=== PATIENT | female | born 1960 | race Caucasian/White ===

== ENCOUNTER 2016-06-17 21:47 | Emergency (ER) | payer MEDICARE ==
[2016-06-17 21:58] VITALS: TEMP 98.5; BMI 43.3
[2016-06-17 23:41] LABS: AUTOMATED BASOPHIL 0.9 % (0-2); AUTOMATED LYMPH 34.3 % (17-44); AUTOMATED MONOCYTE 11.7 % (3-10); AUTOMATED NEUTROPHIL 43.1 % (45-76); MPV 9.4 fL (7.4-10.4)
[2016-06-17 23:47] LABS: PARTIAL THROMB. TIME 27.8 SEC (22-35); PT-INR 1.3
[2016-06-17 23:48] LABS: BLOOD UREA NITROGEN 12 MG/DL (7-17); CALC CORRECTED 9.6 MG/DL (8.4-10.2); CALCIUM 8.5 MG/DL (8.4-10.2); CALCULATED OSMOLALITY 271 MOs/Kg (270-290); CHLORIDE 111 mEq/L (98-107); GLUCOSE 97 MG/DL (70-99); SODIUM LEVEL 141 mEq/L (137-146); TOTAL PROTEIN 6.2 G/DL (6.3-8.2)
--- NOTE | 2016-06-17 23:54 | DIRPT ---
CLINICAL DATA: 56-year-old female with weakness EXAM: PORTABLE CHEST 1 VIEW COMPARISON: Radiograph dated 05/13/2016 FINDINGS: The heart size and mediastinal contours are within normal limits. Both lungs are clear. The visualized skeletal structures are unremarkable. IMPRESSION: No active disease. Electronically Signed By: Ricky Gama M.D. On: 06/17/2016 23:51
--- NOTE | 2016-06-18 00:19 | EDPRACDOC ---
- General Information Chief Complaint: Generalized Weakness Stated Complaint: SLEEPING A LOT BLOOD SUGAR 113 TODAY SOME CONFUSIO Time Seen by Provider: 06/17/16 23:20 Information Source: Patient Home Medications: Home Medications Escitalopram Oxalate [Lexapro] 20 mg PO DAILY 06/17/13 Folic Acid 1 mg PO DAILY 06/17/13 Multivitamin [Multiple Vitamins] 1 tab PO DAILY 06/17/13 Zinc Sulfate 220 mg PO BID 06/15/14 Melatonin 3 mg PO QHS 07/04/15 Ferrous Sulfate [Iron] 325 mg PO BID #100 tablet 08/13/15 Furosemide [Lasix] 20 mg PO BID #60 tablet 08/13/15 Lactulose [Cephulac] 20 gm PO BID #1 bot 08/13/15 Nadolol [Corgard] 20 mg PO DAILY #30 tablet 08/13/15 Rifaximin [Xifaxan] 550 mg PO BID #60 tablet 08/13/15 Gabapentin 300 mg PO TID 11/22/15 Diphenhydramine [Benadryl] 25 mg PO Q6H PRN 05/13/16 Ergocalciferol (Vitamin D2) [Vitamin D2 (ergocalciferol)] 50,000 units PO MOWE 05/13/16 Milk Thistle 175 mg PO BID 05/13/16 Spironolactone [Aldactone] 25 mg PO QAM 05/13/16 Lactulose [Cephulac] 20 gm PO TID #30 days 06/18/16 Allergies/Adverse Reactions: Allergies Allergy/AdvReac Type Severity Reaction Status Date / Time levofloxacin [From Levaquin] Allergy Unknown Unknown/See Verified 05/13/16 20:17 Comments codeine [Codeine] Allergy Nausea only Verified 05/13/16 20:17 duloxetine HCl Allergy Nausea only Verified 05/13/16 20:17 [From Cymbalta] - History of Present Illness Onset: [employer] Exact Onset of Symptoms: Unknown HPI: PT PRESENTS TODAY WITH WHO STATES THAT PT HAS BEEN MORE SLEEPY SINCE YESTERDAY. STATES THAT PT GETS LIKE THIS WHEN HER AMMONIA LEVELS ARE ELEVATED. PT HAS PMH OF LIVER FAILURE D/T STEATOSIS. PT HAS NO COMPLAINTS, OTHER THAN FEELING SLEEPY. 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 Followed at [facility] Gastroesophageal Reflux Musculoskeletal History: Reports: Arthritis, Osteoarthritis Psychological History: Reports: Depression. Denies: Substance Use Disorder Systemic History: Reports: Anemia (and pancytopenia, has seen Dr. Wells in the past.) Additional Past Medical History: PRIOR CELLULITIS AND MRSA THAT REQUIRED ADMISSION Surgical History: Reports: Cholecystectomy, Cardiac Catheterization, Other ( Gastric Bypass.). Denies: Hysterectomy - Family Medical History Reports: Hypertension, Diabetes, Cancer, Cardiac Disorders. Denies: Stroke - Social Medical History Smoking Status: Never smoker Social History: Denies: Substance Use Disorder EDM Review of Systems - Review of Systems ROS Negative Except as Marked: Yes All systems reviewed and were negative except as marked Constitutional: No Symptoms Reported Respiratory: No Symptoms Reported Cardiovascular: No Symptoms Reported Gastrointestinal: No Symptoms Reported Neurological: Weakness Musculoskeletal: No Symptoms Reported Integumentary: No Symptoms Reported - Physical Exam Constitutional: Alert (Awake), No apparent distress Oriented to: Time, Person, Place Last recorded Vital Signs: Last Vital Signs Temp 98.5 F 06/17/16 21:55 Pulse 52 L 06/18/16 00:02 Resp 20 06/18/16 00:02 BP 146/67 06/18/16 00:02 Pulse Ox 98 06/18/16 00:02 Oxygen Pulse Oxygen Saturation 98 O2 Device Room Air Oxygen Flow Rate Fraction of Inspired Oxygen ( FIO2) - HEENT Head: Normal Eye Exam: Normal Neck: Normal, Denies Pain, Midline - Respiratory/Cardiovascular Respiratory: Normal - CTA Cardiovascular: Normal - GI Auscultation: Normal Palpation: Normal Tenderness: Non tender - Musculoskeletal Back: Normal Extremities: Normal - Integumentary Skin: Normal Lymphatics: Normal - Neurologic Cerebellar: Normal Mood Description: Normal Thought: Coherent - Results 06/17/16 23:25 06/17/16 23:25 WBC 4.0 xk/uL (3.8-10.8) 06/17/16 23:25 RBC 3.59 xM/uL (4.20-5.40) L 06/17/16 23:25 Hgb 11.7 g/dL (12.0-16.0) L 06/17/16 23:25 Hct 34.9 % (36-47) L 06/17/16 23:25 MCV 97 fL (81-99) 06/17/16 23:25 MCH 32.6 pg (27-32) H 06/17/16 23:25 MCHC 33.6 g/dl (33-36) 06/17/16 23:25 RDW 15.7 % (11.5-14.5) H 06/17/16 23:25 Plt Count 74 xk/uL (130-400) L 06/17/16 23:25 MPV 9.4 fL (7.4-10.4) 06/17/16 23:25 PT 13.7 SEC (9.2-11.2) H 06/17/16 23:25 INR 1.3 06/17/16 23:25 APTT 27.8 SEC (22-35) 06/17/16 23:25 Sodium 141 mEq/L (137-146) 06/17/16 23:25 Potassium 4.0 mEq/L (3.5-5.1) 06/17/16 23:25 Chloride 111 mEq/L (98-107) H 06/17/16 23:25 Carbon Dioxide 24 mMOL/L (22-33) 06/17/16 23:25 Anion Gap 10 mEq/L (8-16) 06/17/16 23:25 BUN 12 MG/DL (7-17) 06/17/16 23:25 Creatinine 1.00 MG/DL (0.52-1.04) 06/17/16 23:25 Estimated GFR (MDRD) 57 mL/min (>=60) L 06/17/16 23:25 Glucose 97 MG/DL (70-99) 06/17/16 23:25 Calculated Osmolality 271 MOs/Kg (270-290) 06/17/16 23:25 Lactic Acid 0.8 mEq/L (0.7-2.1) 06/17/16 23:45 Calcium 8.5 MG/DL (8.4-10.2) 06/17/16 23:25 Corrected Calcium 9.6 MG/DL (8.4-10.2) 06/17/16 23:25 Total Bilirubin 1.3 MG/DL (0.2-1.3) 06/17/16 23:25 AST 62 IU/L (14-36) H 06/17/16 23:25 ALT 44 IU/L (9-52) 06/17/16 23:25 Alkaline Phosphatase 132 IU/L (38-126) H 06/17/16 23:25 Ammonia 49.0 umol/L (9.0-30.0) H 06/17/16 23:25 Troponin I < 0.01 ng/mL (<.04) 06/17/16 23:25 Total Protein 6.2 G/DL (6.3-8.2) L 06/17/16 23:25 Albumin 2.9 G/DL (3.5-5.0) L 06/17/16 23:25 Lab Results 06/17/16 06/17/16 06/17/16 23:45 23:25 23:25 WBC 4.0 RBC 3.59 L Hgb 11.7 L Hct 34.9 L MCV 97 MCH 32.6 H MCHC 33.6 RDW 15.7 H Plt Count 74 L MPV 9.4 PT 13.7 H INR 1.3 APTT 27.8 Sodium Potassium Chloride Carbon Dioxide Anion Gap BUN Creatinine Estimated GFR (MDRD) Glucose Calculated Osmolality Lactic Acid 0.8 Calcium Corrected Calcium Total Bilirubin AST ALT Alkaline Phosphatase Ammonia Troponin I Total Protein Albumin 06/17/16 06/17/16 23:25 23:25 WBC RBC Hgb Hct MCV MCH MCHC RDW Plt Count MPV PT INR APTT Sodium 141 Potassium 4.0 Chloride 111 H Carbon Dioxide 24 Anion Gap 10 BUN 12 Creatinine 1.00 Estimated GFR (MDRD) 57 L Glucose 97 Calculated Osmolality 271 Lactic Acid Calcium 8.5 Corrected Calcium 9.6 Total Bilirubin 1.3 AST 62 H ALT 44 Alkaline Phosphatase 132 H Ammonia 49.0 H Troponin I < 0.01 Total Protein 6.2 L Albumin 2.9 L - EKG EKG #1 EKG Time: 01:38 -: Yes EKG interpreted by me Rate: bpm: 56 [place]: Normal Rhythm: SB Block: None Hypertrophy: None ST: Normal - Additional Information Additional Information: CASE DISCUSSED WITH DR. CALLAHAN. WILL INCREASE LACTULOSE, BUT OK FOR HOME. Decision Time to Discharge: 02:02 - Departure Disposition: Home Condition: Stable Final Diagnosis: WOOTEN (nonalcoholic steatohepatitis), Increased ammonia level Instructions: Weakness (General) Education/Counseling Given To: Family Member Education/Counseling Given Regarding: Diagnosis, Treatment, Follow Up Referrals: Daniel Salazar MD [Primary Care Provider] - One Week Prescriptions: Lactulose [Cephulac] 20 gm PO TID #30 days Additional Instructions: INCREASE LACTULOSE TO THREE TIMES DAILY AND FOLLOW UP WITH PCP IN 2-3 DAYS. RETURN TO ED FOR ANY WORSE/CONCERNING SYMPTOMS.
[2016-06-18 01:48] VITALS: PULSE 60
[2016-06-18 01:52] LABS: LEUKOCYTES/URINE NEG (NEGATIVE); NITRITE/URINE NEG (NEGATIVE); URINE OCCULT BLOOD TRACE (NEG/TRACE)
[2016-06-18] MEDS ORDERED: LACTULOSE 20 GM/30 ML ORAL SOLN PO ONE (02:04)
[2016-06-18 02:08] LABS: RBC/URINE 0-2 (0-5); WBC/URINE 0-2 (0-5)
[2016-06-18 02:20] VITALS: BP 135/64
== END 2016-06-18 02:19 | disposition home or self-care (01) ==
LOC: ED 21:47
DX: K75.81 Nonalcoholic steatohepatitis (NASH) (principal)
CPT/HCPCS: 36415; 71010; 80053; 81001; 82140; 83605; 84484; 85025; 85610; 85730; 93005; 99284; A9270; J3490